=== PATIENT | female | born 2005 | race African-American/Black ===

== ENCOUNTER 2024-11-23 16:11 | Inpatient (IN) | payer OTHER, SELFPAY ==
[2024-11-23] VITALS (28 sets, daily range): BP systolic 93–130; BP diastolic 54–106; PULSE 70–142; TEMP 36.8–36.9; BMI 23.8
[2024-11-23 17:13] LABS: Basophils Absolute Auto 0.1 K/mm3 (0.0-0.1); Basophils Percent Auto 0.5 % (0.2-1.2); Eosinophils Absolute Auto 0.2 K/mm3 (0-0.3); Eosinophils Percent Auto 1.4 % (0-4.4); Hemoglobin 12.6 g/dL (12.0-15.0); Immature Granulocyte Absolute 0.06 K/mm3 (0.00-0.031); Immature Granulocyte Percent A 0.4 % (0-0.5); Lymphocytes Absolute Auto 2.01 K/mm3 (0.9-3.2); Lymphocytes Percent Auto 13.1 % (18.3-44.2); Mean Corpuscular HGB Conc 34.1 g/dl (32-36); Mean Corpuscular Hemoglobin 30.3 pg (26-34); Mean Corpuscular Volume 88.9 fl (80-100); Mean Platelet Volume 10.7 fl (7.4-10.4); Monocytes Percent Auto 6.7 % (2.6-8.5); Neutrophils Absolute Auto 11.9 K/mm3 (1.3-6.7); Neutrophils Percent Auto 77.9 % (45.5-73.1); Platelet Count Result 328 k/mm3 (150-375); Red Blood Count 4.16 M/mm3 (4.2-5.4); Red Cell Distribution Width 12.5 % (11.5-14.5); White Blood Count 15.3 K/mm3 (4.5-10.0)
[2024-11-23] MEDS: miSOPROStol 25 MCG TABLET 50 MCG BUCCAL ×2 (17:50→22:00)
--- NOTE | 2024-11-23 17:52 | LDADM ---
This patient, Enoch Schwab, was admitted to Labor/Delivery/Recovery 109 on 11/23/24 at 16:11. Plans for labor, pain management and were discussed with patient. Patient/family oriented to hospital policies and general routines including ID bracelet, bed and alarms, visiting hours, pain management, procedures, bathroom and other care routines, personal items, smoking policy, room service/diet and guest tray routines, security routines, and visiting hours. Patient/Family are encouraged to report perceived risks to care and to ask questions if they do not understand what they are told or what they should do. See OBIX for further documentation.
[2024-11-23 18:05] LABS: HIV 1/2 Ab P24 Ag Result Negative (Negative)
[2024-11-23 21:12] LABS: Rapid Plasma Reagin Non-Reactive (NonReactive)
[2024-11-24] VITALS (110 sets, daily range): BP systolic 94–146; BP diastolic 56–107; PULSE 68–211; RESP 18; TEMP 36.2–37.4; O2SAT 95–100
[2024-11-24] MEDS: miSOPROStol 25 MCG TABLET 50 MCG BUCCAL ×2 (02:00→05:45)
[2024-11-24] MEDS: fentaNYL CITRATE INJ (*CRX) 100 MCG/2 ML VIAL 50 MCG IV PUSH ×2 (05:45→08:26)
[2024-11-24] MEDS: LACTATED RINGERS 1,000 ML 125 ML IV CONT ×2 (09:18→11:50)
[2024-11-24] MEDS: OXYTOCIN 30 UNITS/NS 500 ML 30 UNITS/500 ML BAG IV CONT (11:35)
--- NOTE | 2024-11-24 13:01 | PM.IMHP ---
H&P: HPI History of Present Illness Date/Time: 11/24/24 08:30 Chief Complaint: growth restriction Narrative: Patient is a 19 year old who presents for medical induction of labor indicated for growth restriction. Most recent growth US demonstrated EFW4%, AC 1.5%. UADs and testing have been normal. 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 Denies contractions, leakage of fluid or vaginal bleeding. Good movement. Review of Systems Review of Systems: All systems reviewed & are unremarkable except as noted in HPI and below PMFSH Family History Family History Other No pertinent family history Social History Social History Smoking status: Never smoker Second hand tobacco smoke exposure: No Substance use: never Do You Feel Safe in your Home?: Yes Lack of Transportation: No Lack of Food: Never True Current Housing: I Have Housing Concerned About Future Housing: No Difficulty Paying Gas/Electric Bills: No Difficulty Paying for Meds: No Currently Unemployed: No Education: High School Diploma/GED Difficulty w/ Childcare or Family Care: No Spiritual care concerns: No Meds Home Medications and Allergies Home Medications ?Medication ?Instructions ?Recorded ?Confirmed ?Type vit no.95-ferrous 1 tablet PO DAILY 11/17/24 11/24/24 History fumarate 28 mg-folic acid 800 mcg tablet () Allergies Allergy/AdvReac Type Severity Reaction Status Date / Time No Known Allergies Allergy Verified 11/24/24 06:58 Vital Signs Vital Signs - 24 hr 11/23/24 17:00 11/23/24 17:15 11/23/24 17:30 Temperature Pulse Rate 89 92 90 Blood Pressure 118/80 102/69 105/65 Pulse Oximetry Oxygen Delivery 11/23/24 17:45 11/23/24 17:52 11/23/24 18:01 Temperature Pulse Rate 108 H 94 Blood Pressure 116/69 117/76 Pulse Oximetry Oxygen Delivery Room Air 11/23/24 18:15 11/23/24 18:30 11/23/24 18:45 Temperature 98.5 F Pulse Rate 91 98 92 Blood Pressure 119/72 113/76 124/79 Pulse Oximetry Oxygen Delivery 11/23/24 19:00 11/23/24 19:15 11/23/24 19:30 Temperature Pulse Rate 88 87 89 Blood Pressure 117/76 127/86 115/75 Pulse Oximetry Oxygen Delivery 11/23/24 19:45 11/23/24 20:00 11/23/24 20:03 Temperature Pulse Rate 93 93 Blood Pressure 128/83 119/82 Pulse Oximetry Oxygen Delivery Room Air 11/23/24 20:15 11/23/24 20:30 11/23/24 20:45 Temperature Pulse Rate 95 101 H 86 Blood Pressure 119/81 121/87 121/106 H Pulse Oximetry Oxygen Delivery 11/23/24 21:00 11/23/24 21:15 11/23/24 21:30 Temperature Pulse Rate 102 H 83 137 H Blood Pressure 130/91 H 93/54 L 108/91 H Pulse Oximetry Oxygen Delivery 11/23/24 21:45 11/23/24 22:00 11/23/24 22:15 Temperature 98.2 F Pulse Rate 86 83 88 Blood Pressure 127/74 121/71 121/85 Pulse Oximetry Oxygen Delivery 11/23/24 22:30 11/23/24 22:45 11/23/24 23:00 Temperature Pulse Rate 87 83 80 Blood Pressure 124/88 110/94 H 112/66 Pulse Oximetry Oxygen Delivery 11/23/24 23:15 11/23/24 23:32 11/23/24 23:45 Temperature Pulse Rate 74 142 H 70 Blood Pressure 116/78 130/86 104/63 Pulse Oximetry Oxygen Delivery 11/24/24 00:00 11/24/24 00:15 11/24/24 00:30 Temperature 98.4 F Pulse Rate 76 73 71 Blood Pressure 135/75 123/78 120/75 Pulse Oximetry Oxygen Delivery 11/24/24 00:45 11/24/24 01:00 11/24/24 01:15 Temperature Pulse Rate 72 74 81 Blood Pressure 110/68 112/75 117/77 Pulse Oximetry Oxygen Delivery 11/24/24 01:30 11/24/24 01:45 11/24/24 02:00 Temperature 97.6 F Pulse Rate 77 74 81 Blood Pressure 136/80 115/70 120/86 Pulse Oximetry Oxygen Delivery 11/24/24 02:15 11/24/24 02:30 11/24/24 02:45 Temperature Pulse Rate 79 84 70 Blood Pressure 117/67 111/69 122/87 Pulse Oximetry Oxygen Delivery 11/24/24 03:00 11/24/24 03:15 11/24/24 03:30 Temperature Pulse Rate 69 84 73 Blood Pressure 115/84 119/80 121/79 Pulse Oximetry Oxygen Delivery 11/24/24 03:45 11/24/24 04:00 11/24/24 04:15 Temperature 97.9 F Pulse Rate 77 68 102 H Blood Pressure 118/74 117/74 127/83 Pulse Oximetry Oxygen Delivery 11/24/24 04:30 11/24/24 04:45 11/24/24 05:00 Temperature Pulse Rate 83 83 81 Blood Pressure 112/65 117/83 113/73 Pulse Oximetry Oxygen Delivery 11/24/24 05:15 11/24/24 05:30 11/24/24 05:45 Temperature Pulse Rate 86 83 95 Blood Pressure 113/72 121/77 120/74 Pulse Oximetry Oxygen Delivery 11/24/24 06:00 11/24/24 06:15 11/24/24 06:30 Temperature 97.2 F L 97.3 F L Pulse Rate 108 H 80 92 Blood Pressure 115/73 106/66 119/76 Pulse Oximetry Oxygen Delivery 11/24/24 06:53 11/24/24 07:00 11/24/24 07:30 Temperature Pulse Rate 76 80 Blood Pressure 108/64 100/56 L Pulse Oximetry Oxygen Delivery Room Air 11/24/24 08:00 11/24/24 08:30 11/24/24 09:00 Temperature Pulse Rate 69 102 H 84 Blood Pressure 112/79 129/77 115/77 Pulse Oximetry Oxygen Delivery 11/24/24 09:30 11/24/24 10:00 11/24/24 10:26 Temperature Pulse Rate 75 78 89 Blood Pressure 130/107 H 124/80 146/95 H Pulse Oximetry 99 Oxygen Delivery 11/24/24 10:27 11/24/24 10:30 11/24/24 10:31 Temperature Pulse Rate 98 89 Blood Pressure 146/94 H 122/86 Pulse Oximetry 98 Oxygen Delivery 11/24/24 10:33 11/24/24 10:35 11/24/24 10:36 Temperature Pulse Rate 89 92 Blood Pressure 121/76 118/78 Pulse Oximetry 99 Oxygen Delivery 11/24/24 10:37 11/24/24 10:39 11/24/24 10:40 Temperature Pulse Rate 90 95 Blood Pressure 119/79 119/80 Pulse Oximetry 99 Oxygen Delivery 11/24/24 10:42 11/24/24 10:45 11/24/24 10:48 Temperature Pulse Rate 94 98 93 Blood Pressure 109/80 120/70 124/63 Pulse Oximetry 99 Oxygen Delivery 11/24/24 10:50 11/24/24 10:51 11/24/24 10:54 Temperature Pulse Rate 88 98 Blood Pressure 120/81 127/86 Pulse Oximetry 99 Oxygen Delivery 11/24/24 10:55 11/24/24 10:57 11/24/24 11:00 Temperature Pulse Rate 94 88 Blood Pressure 121/85 123/82 Pulse Oximetry 99 95 Oxygen Delivery 11/24/24 11:01 11/24/24 11:03 11/24/24 11:06 Temperature Pulse Rate 92 90 Blood Pressure 95/58 L 115/80 Pulse Oximetry 99 100 Oxygen Delivery 11/24/24 11:09 11/24/24 11:11 11/24/24 11:16 Temperature Pulse Rate 88 Blood Pressure 132/91 H Pulse Oximetry 99 99 Oxygen Delivery 11/24/24 11:21 11/24/24 11:26 11/24/24 11:31 Temperature Pulse Rate 84 Blood Pressure 94/63 L Pulse Oximetry 99 98 100 Oxygen Delivery 11/24/24 11:36 11/24/24 11:41 11/24/24 11:46 Temperature Pulse Rate Blood Pressure Pulse Oximetry 99 99 98 Oxygen Delivery 11/24/24 11:51 11/24/24 11:56 11/24/24 12:00 Temperature Pulse Rate 74 Blood Pressure 116/74 Pulse Oximetry 99 99 Oxygen Delivery 11/24/24 12:01 11/24/24 12:06 11/24/24 12:11 Temperature Pulse Rate Blood Pressure Pulse Oximetry 99 98 99 Oxygen Delivery 11/24/24 12:16 11/24/24 12:21 11/24/24 12:22 Temperature Pulse Rate Blood Pressure Pulse Oximetry 98 99 97 Oxygen Delivery 11/24/24 12:27 11/24/24 12:30 11/24/24 12:32 Temperature Pulse Rate 211 H Blood Pressure 129/83 Pulse Oximetry 100 99 Oxygen Delivery 11/24/24 12:37 11/24/24 12:42 11/24/24 12:47 Temperature Pulse Rate Blood Pressure Pulse Oximetry 99 100 98 Oxygen Delivery 11/24/24 12:52 11/24/24 12:57 11/24/24 13:00 Temperature Pulse Rate 76 Blood Pressure 105/66 Pulse Oximetry 97 99 Oxygen Delivery Exam Const: General: comfortable and no acute distress HENMT: Mouth: Yes moist mucous membranes Eyes: General: appearance normal, both eyes and all related structures Resp: Effort & Inspection: normal respiratory effort Cardio: Rate: regular rate Extrem: General: normal to inspection Psych: Mental Status: mental status grossly normal H&P: Results Labs Labs: Short CBC 11/23/24 Range/Units 17:05 WBC 15.3 H (4.5-10.0) K/mm3 Hgb 12.6 (12.0-15.0) g/dL Hct 37.0 (37.0-47.0) % Plt Count 328 (150-375) k/mm3 Assessment and Plan Assessment and plan (1) growth restriction: Status: Acute Assessment and Plan: - EFW 4%, AC 1.5% at most recent growth US - UADs and testing wnl - recommend induction at 37 weeks due to lagging AC <3% (2) Encounter for planned induction of labor: Code(s): Z34.90 - Encounter for supervision of normal , unspecified, unspecified trimester Status: Acute Assessment and Plan: - cytotec per protocol - plan for pitocin and AROM To follow
--- NOTE | 2024-11-24 14:21 | PM.OBPNLAB ---
Pain Control Date/time seen: 11/24/24 14:21 Pain control: epidural Pelvic Exam Dilation (cm): 3 Effacement (%): 90 station: -2 Amniotic membrane status: Ruptured (clear fluid) Assessment and Plan Pitocin rate (mU/min): 4 Assessment: induction ongoing Plan: continuous present management
--- NOTE | 2024-11-24 15:22 | PM.OBPRVD ---
OB - Vaginal Delivery Note Procedure Delivery date: 11/24/24 Events: Intrauterine Growth Restriction (IUGR) Induction method: Per Misoprostol Protocol Delivery augmentation: Rupture of Membranes and Pitocin Delivery monitor: External FHT and External Uterine Route of delivery: Episiotomy description: None Laceration Description: Perineal - 2nd Degree Delivery repair: vicryl Specimen: No Quantitative Blood Loss (ml): 100 Anesthesia type: Epidural Disposition: Floor Complications: No immediate complications Narrative: See H&P and notes for details on patient's admission and labor. She progressed to complete cervical dilation and at the appropriate time began pushing. With adequate expulsive efforts by the mother, the baby's head was delivered without difficulty. Nuchal cord was present x2. The baby's left shoulder was anterior and delivered under the pubic symphysis without difficulty. The posterior shoulder and the rest of the baby delivered without difficulty. The umbilical cord was doubly clamped and cut after 60 seconds of delayed cord clamping. Care of the infant was then assumed by the nursing staff. [place] Baby Date of : 11/24/24 Time of : 15:08 Gestational Age by Date: 37 gender: Male Weight (pounds): 5 Weight (ounces): 8 presentation: vertex position: Left Occiput Anterior Placenta delivery description: Expressed Cord Vessel Description: 3 Vessels, Nuchal Cord (x2) and Reduced
[2024-11-24] MEDS: OXYTOCIN 30 UNITS/NS 500 ML 30 UNITS/500 ML BAG 125 UNITS IV CONT (15:45)
[2024-11-24] MEDS: BENZOCAINE 20% AER SPR (*SP) 56 GM CAN 1 SPRAY TOPICAL (16:05)
[2024-11-24] MEDS: WITCH HAZEL 40 PADS 1 PAD TOPICAL (16:05)
--- NOTE | 2024-11-24 17:41 | PC.NURSE ---
1630. Called to patients room to assist mother latching infant. Mother reports this is her first baby, and she requests extra help in getting infant to latch for the first time. We attempted to place infant in the cross cradle position to the R breast and waited for infant to open wide. After a few minutes infant latched with ease to the right breast in cross cradle position. was able to maintain an appropriate latch for about 6 minutes and delatched himself. We were able to relatch to the same breast and mom went on to breastfeed in this position for another 15 min. Mother declines nipple pain/discomfort throughout feeding. Encouraged mother to keep awake and nursing at the breast for 15 minutes. Mother taught to listen for infant swallowing during feedings. Reviewed using the blue feeding sheet to record time and duration of feeding. Mother voiced understanding of the education shared, to call for assistance if the does not latch or if there is discomfort with . name/number on communication board. Reported to the Primary RN.?
--- NOTE | 2024-11-24 17:41 | OBPPTRN ---
Patient transferred to post room #292 via wheelchair. Support person present. Oriented to unit, room, information board, rooming in, admission packet and security measures. Patient verbalizes understanding.
[2024-11-24] MEDS: IBUPROFEN 600 MG TABLET PO (19:58)
[2024-11-25 00:42] VITALS: BP 105/65; PULSE 91; RESP 16; TEMP 36.9; O2SAT 99
[2024-11-25] MEDS: IBUPROFEN 600 MG TABLET PO ×2 (05:46→12:36)
--- NOTE | 2024-11-25 06:20 | P.PNOB_ITS ---
OB - PN: Subj Subjective Date/time seen: 11/25/24 06:20 Interval history: PPD#1 Doing well, mild cramping Voiding without issue , working on latching OB - PN: Obj Data Labs 11/23/24 17:05 OB - PN A/P Assessment and Plan (1) (spontaneous vaginal delivery): Code(s): O80 - Encounter for full-term uncomplicated delivery Status: Acute Plan day: 1 Plan: routine care Time Spent With Patient Time: Total time spent is greater than 50% in coordination of care (as documented) at patient's floor/unit and/or counseling patient: Review of Systems 2 Review of Systems: All systems reviewed & are unremarkable except as noted in HPI and below Exam 2 Const: General: comfortable and no acute distress O rientation/consciousness: patient oriented x3 Resp: Effort & Inspection: normal respiratory effort
[2024-11-25 06:21] LABS: Hematocrit 32.3 % (37.0-47.0)
[2024-11-25 08:25] VITALS: BP 107/73; PULSE 87; RESP 18; TEMP 36.7; O2SAT 100
--- NOTE | 2024-11-25 12:10 | PC.NURSE ---
Mother verbalizes she is able to independently latch with appropriate positioning and alignment. She has some nipple discomfort and says her nipple is creased after the feeding. Baby just finished a feeding. Encouraged patient to call out for a latch check and some tips on getting/maintaining a deep latch. is currently meeting outcomes for weight, output, jaundice, blood sugar and feeding frequencies of 8-12 times in 24 hours. Mother declines any additional assistance or education at this time. Mother agrees to call for assistance at the next feeding time. Mother voiced understanding of information shared along with the mom/baby guide for an additional resource. Reported to the Primary RN.
[2024-11-25] MEDS: MULTIVIT/MIN/PREN/FOL AC/IRON TABLET 1 TAB PO (12:36)
[2024-11-25 12:55] VITALS: BP 126/84; PULSE 85; RESP 16; TEMP 36.2; O2SAT 100
--- NOTE | 2024-11-25 14:00 | PC.NURSE ---
1400- Patient called out for a latch check. Mom had baby skin to skin and had attempted to wake him up but he was in a deep sleep state. It has only been 2 hours since his last feeding so mom is encouraged to wait a half hour and try again. Mom agrees and will call out so that her latch can be assessed. 1600- was in the nursery for awhile for testing and hearing screen. It was time for him to eat so we unwrapped and undressed him and he opened his eyes. He was reluctant to open his mouth and we worked to wake him for about 5 minutes. He then acted eager and latched to the R breast in cradle hold. Mom let out a cry when he latched on, like it was painful. He seems to have a very strong suck. She said that's how it feels every time. We made sure his lips were flanged out and that his tongue was visible under the breast. After a minute the nipple pain decreased and mom said it wasn't as bad. We reviewed alignment and positioning, along with observing baby's mouth for a wide angle, nose and chin close to the breast. Baby nursed off and on for less than 5 minutes but he did have several swallows in that time. Mom is encouraged to try for another 10 minutes and then allow baby to have a break to rest. Mom agrees and will call out for further assistance as needed. Reported to primary RN.
--- NOTE | 2024-11-25 18:00 | PC.NURSE ---
1720- Checked in with patient to see if baby had eaten again. Mom said she had tried but he had been very sleepy. We undressed him and tried for at least 10 minutes to wake him. Discussed the possibility of pumping if baby doesn't have a good feeding soon. Mom wants to know how long she should wait before calling out if he hasn't eaten. Advised that she call out around 1800 and we can initiate pumping if he hasn't breastfed. Mom agrees. Educated on normal behavior in the early period. Reported to primary RN. 1800- Patient called out because baby had not eaten again. We were about to start her pumping with her Zomee pump that we reviewed the use of earlier today, when baby started giving feeding cues. Mom said that he had done this several times but would fall asleep at the breast when close to her. Mom was eager to try to breastfeed again and when we put him near the breast he rooted and gave a wide open mouth. Father of baby is very helpful and involved. Baby latched with a very strong suck and mom said it was painful at the start. Baby's bottom lip was rolled in and mom was shown how to fix this by pulling down on his chin. As baby nursed mom stated that the nipple pain was less intense. Her nipples appear to be intact though she does say they are creased after nursing. Discussed signs of a deep latch and how to keep baby in good alignment and close to the breast. Parents verbalized understanding of the information shared and primary RN was updated.
[2024-11-25 21:30] VITALS: BP 124/89; PULSE 86; RESP 16; TEMP 36.6; O2SAT 100
[2024-11-26] MEDS: IBUPROFEN 600 MG TABLET PO ×2 (01:18→07:25)
[2024-11-26] MEDS: ACETAMINOPHEN 325 MG TABLET 650 MG PO ×2 (01:18→07:25)
[2024-11-26] MEDS: MULTIVIT/MIN/PREN/FOL AC/IRON TABLET 1 TAB PO (07:25)
[2024-11-26] MEDS: DOCUSATE SODIUM 100 MG CAPSULE PO (07:25)
--- NOTE | 2024-11-26 08:05 | P.PNOB_ITS ---
OB - PN: Subj Subjective Date/time seen: 11/26/24 08:05 Interval history: PPD#1 Doing well, mild cramping Voiding without issue , working on latching Patient comments: no complaints, pain well controlled and tolerating diet OB - PN: Obj Data Labs 11/25/24 06:10 OB - PN A/P Plan day: 2 Plan: routine care and discharge home Time Spent With Patient Time: Total time spent is greater than 50% in coordination of care (as documented) at patient's floor/unit and/or counseling patient: Exam 2 Const: General: comfortable and no acute distress Resp: Effort & Inspection: normal respiratory effort Auscultation: no rales, no rhonchi and no wheezes Cardio: Rate: regular rate Heart sounds: no click, no murmurs and no rubs GI: GI Palp: Yes Soft to palpation and No Tenderness to palpation present (GI) Auscultation: normal bowel sounds Extrem: General: normal to inspection, no pedal edema and no calf tenderness
[2024-11-26 09:15] VITALS: BP 122/78; PULSE 84; RESP 16; TEMP 36.3; O2SAT 100
--- NOTE | 2024-11-26 10:00 | PC.NURSE ---
Patient switched to bottle feeding overnight. RN encouraged her to pump and her pump was in the room. We reviewed yesterday how to use it but she is choosing not to pump at this time. No further needs at this time.
[2024-11-27 08:44] VITALS: BP 125/85; PULSE 78; RESP 18; TEMP 37.3; O2SAT 100
--- NOTE | 2024-11-28 23:32 | P.DS_ITS ---
DS: Admitting Diagnosis Discharge Date 11/26/24 Admitting Diagnosis growth restriction, medical induction of labor DS: Discharge Diagnosis Discharge Diagnosis (1) (spontaneous vaginal delivery): Code(s): O80 - Encounter for full-term uncomplicated delivery Status: Acute OB - DS: Summary OB Procedures : None OB Procedures Intrapartum: Spontaneous Vag Delivery OB Procedures: : None Peripartum Data Laceration Description: Perineal - 2nd Degree Episiotomy description: None Time Spent with Patient Time attestation: Total time spent providing and/or coordinating discharge services: DS: Data Data Completed and Pending Completed studies during hospitalization: Pending at discharge 11/25/24 13:56 Surgical [PTH] Routine Discharge Plan Discharge Attending physician on discharge: Elbert Carcamo Discharging Clinician: Rafael Haro Anticipated Discharge Date/Time: 11/26/24 10:31 Patient Disposition: Home, Self-Care Activity: may shower and pelvic rest Diet: regular Discharge Instructions: Education: Mom and Baby Guide Given to: Mother Follow-Up: Call your delivering provider's office for an appointment to be seen in: 4 Weeks Mom and baby should come to the [facility] for the follow-up appointment. Appointment Date/Time: November 27, 2024 at 8:00 am What to expect at your follow-up visit: Blood Pressure Check Physical Assessment Call [phone] if you are unable to keep your appointment time. BREAST CARE: * Wear a snug supportive bra. * For engorgement discomfort: Breast Feeding: * Apply warm moist washcloths * Express milk as needed to relieve engorgement * Wear loose clothing Bottle Feeding: * May apply ice packs * For sore nipples: * Identify correct latch-on * Apply warm moist washcloths before and after nursing * Air dry nipples after nursing * May apply Lansinoh cream to nipples ABDOMINAL INCISION: (if applicable) * Allow incision to air dry * Do NOT use lotions for powders on your incision * When showering, allow soap and water to run over the incision, but do not wash incision EPISIOTOMY/PERINEAL CARE: * Until bleeding stops, use your opal bottle after urinating * Change your pad frequently throughout the day * You may take sitz baths several times a day (fill your bathtub with warm water and soak for 20 minutes.) Do NOT bathe in the water * No tub baths until seen by your physician - You may shower ACTIVITY: * Rest as much as possible. * Do not exercise or lift anything heavier than your baby (such as laundry or other children.) * Avoid stairs or driving as much as possible. * Do not put anything into the vagina. No douching, tampons, or sexual activity until seen by physician. NOTIFY PHYSICIAN IF YOU HAVE ANY QUESTIONS OR IF ANY OF THE FOLLOWING SYMPTOMS OCCUR: * If your episiotomy or incision becomes red, swollen, or more painful than what you have experienced in the hospital. * If your vaginal bleeding becomes foul smelling. * If your vaginal bleeding becomes more heavy than a period or if your bleeding changes from pink to bright red. However, you may pass an occasional walnut- sized clot once or twice for the first week . * If you experience a sharp, shooting pain in you calves. * If you discover a hard, reddened area on your breast or if you experience flu- like symptoms. DIET: * Eat regular, well-balanced meals. * Drink plenty of fluids daily. If , drink to thirst. Patient Language: [place] Stand Alone Forms: General Discharge Information Follow-up/Referrals: Elbert Carcamo MD [Physician] - Discharge Medications: Continued PNV cmb#95-ferrous fumarate-FA [] 28 mg iron- 800 mcg tablet 1 tablet PO DAILY Date of admission: 11/23/24 16:11 Primary Care Provider: UNKNOWN,DOCTOR Admitting Provider: Elbert Carcamo Attending physician on admission: Rafael Haro Condition: Stable
== END 2024-11-26 11:34 | disposition home or self-care (01) | DRG 560 ==
LOC: ANHLDR 16:37 → ANHOB2 11-26 10:31 → ANHLDR 11-27 11:42 → ANHOB2 11-27 11:42
PROVIDERS: Admitting Provider Obstetrics & Gynecology; Visit Provider Obstetrics & Gynecology
DX: O36.5930 Maternal care for other known or suspected poor fetal growth, third trimester, not applicable or unspecified (principal); O62.3 Precipitate labor; Z37.0 Single live birth; Z3A.37 37 weeks gestation of pregnancy; O70.1 Second degree perineal laceration during delivery; O69.81X0 Labor and delivery complicated by cord around neck, without compression, not applicable or unspecified; O99.284 Endocrine, nutritional and metabolic diseases complicating childbirth; E80.4 Gilbert syndrome
CPT/HCPCS: 36415; 85014; 85018; 85025; 86592; 86703; 86850; 86900; 86901; 88307; A9270; G0432; J2590; J2795; J3010; J7120